=== PATIENT | female | born 1990 ===

== ENCOUNTER 2024-06-01 09:23 | Outpatient (CLI) | payer OTHER | END 2024-06-01 10:02 | disposition home or self-care (01) | LOC: SONOGRAMA 09:23 | DX: M79.641 Pain in right hand (principal); M25.331 Other instability, right wrist ==

== ENCOUNTER 2024-06-15 09:10 | Outpatient (CLI) | payer OTHER | END 2024-06-15 09:30 | disposition home or self-care (01) | LOC: SONOGRAMA 09:10 | DX: M79.641 Pain in right hand (principal); M25.319 Other instability, unspecified shoulder ==